=== PATIENT | female | born 1995 | race Two or more races ===

== ENCOUNTER 2019-04-22 16:16 | Emergency (ER) | payer MEDICAID, OTHER ==
[~2019-04-22] VITALS: Ht 154.9 cm; Wt 65.3 kg
[2019-04-22 16:28] VITALS: BP 103/70
== END 2019-04-22 17:03 | disposition home or self-care (01) ==
LOC: ER 16:21
DX: L23.9 Allergic contact dermatitis, unspecified cause (principal); R06.4 Hyperventilation; F41.9 Anxiety disorder, unspecified